=== PATIENT | male | born 1990 | race African-American/Black ===

== ENCOUNTER 2019-10-22 11:25 | Emergency (ER) | payer OTHER ==
[~2019-10-22] VITALS: Ht 180.3 cm; Wt 102.1 kg
[2019-10-22 11:47] VITALS: BP 134/84
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
[2019-10-22] MEDS ORDERED: AUGMENTIN 875-1 EAC1 ORAL (12:48)
[2019-10-22] MEDS ORDERED: CYCLOBENZAPRINE10 MG ORAL (12:48)
[2019-10-22] MEDS ORDERED: IBUPROFEN600 MG ORAL (12:48)
[2019-10-22 13:06] VITALS: BP 127/64
== END 2019-10-22 13:05 | disposition home or self-care (01) ==
LOC: EMR 12:10
DX: H57.12 Ocular pain, left eye (principal); H57.13 Ocular pain, bilateral; Y04.8XXA Assault by other bodily force, initial encounter; Y92.9 Unspecified place or not applicable
CPT/HCPCS: 99282